=== PATIENT | female | born 1985 | race Caucasian/White ===

== ENCOUNTER 2022-05-07 06:58 | Day surgery (SDC) | payer BC, SELFPAY ==
[2022-05-07 07:16] VITALS: BP 119/67; PULSE 67; RESP 16; TEMP 36.4; O2SAT 97
[2022-05-07 07:21] VITALS: BMI 23.9
[2022-05-07 07:32] LABS: Ur HCG Qualitative* Negative (Negative)
[2022-05-07] MEDS: LACTATED RINGERS 1000 ML 1,000 ML 100 ML IV (07:37)
[2022-05-07] MEDS: SODIUM CHLORIDE 0.9 % (FLUSH) 10 ML SYRINGE IVF (07:38)
--- NOTE | 2022-05-07 08:58 | W.PM.GYNPROC ---
Procedure Note Date Seen: 05/07/22 Procedure Details: PREOPERATIVE DIAGNOSIS: Menorrhagia, abnormal appearance to endometrial stripe on ultrasound with suspected polyp POSTOPERATIVE DIAGNOSIS: Menorrhagia, abnormal appearance to endometrial stripe on ultrasound with suspected polyp PROCEDURE: hysteroscopy, dilation and curettage SURGEON: Dottie Vieyra MD ANESTHESIA: monitored anesthesia care, paracervical block IV FLUIDS: 800 mL crystalloid URINE OUTPUT: approximately 10 mL EBL: 5 mL FINDINGS: 1. Exam under anesthesia revealed a mobile, anteverted uterus without any palpable adnexal masses. 2. Upon hysteroscopy, survey of the endometrial cavity revealed diffusely thickened endometrium without any discrete lesions. Cavity shape was normal in appearance. COMPLICATIONS: None PROCEDURE IN DETAIL: Patient was taken to the operating room with IV running. She was positioned in dorsal lithotomy position with her legs fully supported in Yellofin stirrups. Monitored anesthesia care was administered. She was prepped and draped in the usual sterile fashion. Exam under anesthesia was performed for the above-noted findings. Bladder was drained via straight catheterization. Speculum was inserted. Cervix visualized and grasped along the anterior lip with a single-tooth tenaculum. Paracervical block was performed with a total of 10 mL of 1% lidocaine. Cervix was serially dilated to accommodate the TRUCLEAR hysteroscope. This was assembled with saline inflow and outflow in place. The line was flushed of bubbles. The hysteroscope was advanced through the cervix into the endometrial cavity for the above noted findings. The tissue morcellator was then inserted through the operating channel. Window lock was performed. Under direct visualization, the endometrial cavity was circumferentially curetted with the tissue morcellator. The hysteroscope and morcellator were then removed from the uterus. Tenaculum was removed from the anterior lip of cervix. Hemostasis was Achieved with silver nitrate. Patient tolerated procedure well. She was taken to recovery area in stable condition.
--- NOTE | 2022-05-07 09:01 | PC.NURSE ---
VOLUME OF NS IN= 1305, DEFICIT 205ML
[2022-05-07 09:02] VITALS: BP 109/72; PULSE 63; RESP 14; TEMP 36.1; O2SAT 96
--- NOTE | 2022-05-07 09:02 | W.ANESCHARGE ---
Anesthesia Charges Start Date/Time Anesthesia Start Date: 05/07/22 Anesthesia Start Time: 08:10 Stop Date/Time Anesthesia Stop Date: 05/07/22 Anesthesia Stop Time: 09:03 Summary Emergency: No
[2022-05-07 09:15] VITALS: BP 115/81; PULSE 61; RESP 14; O2SAT 96
[2022-05-07 09:30] VITALS: BP 129/89; PULSE 60; RESP 14; O2SAT 96
[2022-05-07 09:45] VITALS: BP 120/88; PULSE 67; RESP 14; O2SAT 97
--- NOTE | 2022-05-07 10:20 | W.ANESCHARGE ---
Anesthesia Charges Start Date/Time Anesthesia Start Date: 05/07/22 Anesthesia Start Time: 08:10 Stop Date/Time Anesthesia Stop Date: 05/07/22 Anesthesia Stop Time: 09:03 Summary Emergency: No
== END 2022-05-07 09:50 | disposition home or self-care (01) ==
PROVIDERS: PCP Family Medicine; Visit Provider Obstetrics & Gynecology
PROC: 0UDB8ZZ Extraction of Endometrium, Via Natural or Artificial Opening Endoscopic (ICD-10-PCS; CPT 58558; principal; 2022-05-07 08:00)
DX: N92.0 Excessive and frequent menstruation with regular cycle (principal); R93.89 Abnormal findings on diagnostic imaging of other specified body structures; N84.0 Polyp of corpus uteri
CPT/HCPCS: 58558; 00952; 36415; 81025; 86850; 86900; 86901; 88305; J1100; J1885; J2250; J2405; J2704; J3010; J7120